=== PATIENT | female | born 1955 | race Caucasian/White ===

== ENCOUNTER 2024-12-18 13:31 | Outpatient (AMB) | payer OTHER, SELFPAY ==
--- OUTSIDE RECORDS SUMMARY | 2024-05-29 06:00 | XMS_ITS ---
Author Organization [facility] Address [address] [place], [place] [id number] Care Team Providers Care Performance Manager Name Role Phone FAWN ROBLES Primary Care Provide [phone] REASON FOR VISIT 39/4-5mo f/u Encounters Encounter Location Date Provider Diagnosis [place] [phone] 05/29/2024 FAWN ROBLES PLAN OF TREATMENT Next Appt Details Provider Name:FAWN DONALD, 01/28/2025 11:00:00 AM, [address] [place] [address], [phone],
--- OUTSIDE RECORDS SUMMARY | 2024-07-26 07:00 | XMS_ITS ---
Author Organization [facility] Address [address] [place], [place] [id number] Care Team Providers Care State Manager Name Role Phone FAWN ROBLES Primary Care Provide [phone] REASON FOR VISIT referral Encounters Encounter Location Date Provider Diagnosis [place] [phone] 07/26/2024 FAWN ROBLES PLAN OF TREATMENT Next Appt Details Provider Name:FAWN DONALD, 01/28/2025 11:00:00 AM, [address] [place] [address], [phone],
--- OUTSIDE RECORDS SUMMARY | 2024-08-03 06:00 | XMS_ITS ---
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) Referral Organization [facility] Referring Provider First Name FAWN Referring Provider Last Name MARIVEL CHEUNG Referring Provider Speciality Internal M edicine Referred Organization [facility] Referred Address Fax # on request fax ,[place] Referred Provider Specialty Endocrinolog y General Notes Doris WICK MA 08/2024 08:20:27 AM > faxed ref to [facility] , f: [phone], Doris WICK [place] 09/07/2024 03:31:29 PM > manually faxed U/S and labs to [facility] , f: [phone], Chelsey WICK P Admin 11/14/2024 10:31:57 AM > per incoming document pt has appt on 11/19 with Lorri Ferro>requesting 12 visits>cannot obtain a referral right now with [facility] as it still does not have our doctors listed, Chelsey WICK P Admin 12/14/2024 03:00:28 PM > referral approved and faxed to [facility] at [phone]>encounter closed Clinical Notes FAWN ROBLES 09/03/2024 04:54:25 PM >pls fax thyroid us and labs to [facility] Natalie G [place] 10/14/2024 12:40:19 PM > no notes office number [phone] Referral Priority Urgent Referral Appointment Date 11/19/2024 Reason [facility] (fax ed 08[facility]13/24[facility] tx emphysema Diagnosis 1 Pulmonary emphysema, unspecified emphysema type (J43.9) Referral Organization [facility] Referring Provider First Name FAWN Referring Provider Last Name MARIVEL CHEUNG Referring Provider Speciality Internal M edicine Referred Provider BOYD WILKINSON Referred Provider Specialty Internal Med icine General Notes Doris WICK MA 08/2024 08:22:15 AM > faxed ref to [facility] pulm, f: [phone], Chelsey WICK P Admin 11/29/2024 12:34:03 PM > , Marci Cedillo, , calling regarding the referral to Dr Zavala. I did advise on the issues with [facility] Manually faxed referral request to [facility] as doctor is no showing on their website , Chelsey WICK P Admin 11/29/2024 03:12:38 PM > Marci Cedillo, , start date today, 11/29/2024, Dr. Wilkinson, , , Reason: emphysema, Kendra WICK Referrals 12/12/2024 12:21:06 PM > back dagted referral approved and faxed to [facility] at [phone] Referral Priority Routine Referral Appointment Date 11/29/[address] [facility] for eval/tx of new right sided hearing loss Diagnosis 1 Hearing loss of righ t ear, unspecified hearing loss type (H91.91) Referral Organization [facility] Referring Provider First Name FAWN Referring Provider Last Name MARIVEL CHEUNG Referring Provider Speciality Internal M edicine Referred Organization [facility] Referred Address [place], [place], Referred Provider Specialty Otology, Lar yngology, Rhinology General Notes SHAMIKADoris Christianson SABRINA 08/08 05:07:35 PM > faxed to [place] ent , f: [phone] Referral Priority Urgent REASON FOR VISIT follow up, feels very congested had flu in May 2024 and right ear hearing sound muffled almost like water inside , sometimes feels off balance MEDICATIONS Medication SIG (Take, Route, Frequency, Duration) Notes Start Date End Date Status Vitamin D 1000 UNIT 1 tablet Orally Once a day for 30 day(s) Active Multivitamin Adults - as directed Orally Active Wellbutrin SR 150 MG 1 tablet in the mor lucy Orally Once a day for 30 days Active Hair Skin & Nails Gummies 1250-7.5-7.5 MCG-MG-UNT as directed Orally Active dexAMETHasone 1 MG 1 tablet Orally once between 11pm and midnight , night before fasting am labs for 1 days Active Melatonin 5 MG 1 tablet in the even ing Orally Once a day for 30 day(s) Active SOCIAL HISTORY Tobacco Use: Social History Observation Description Date Details (start date - stop date) Current Smoker NA - NA Sex Assigned At : Social History Observation Description Sex Assigned At Unknown Smoking Question Answer Notes Are you a: current smoker PROBLEMS Problem Type ICD Code Onset Dates Problem Status W/U Status Risk SNOMED Code Notes Problem Hearing loss of right ear, unspecified hearing loss type (H91.91) Active confirmed 960463976 VITAL SIGNS Height 60.5 in 08/03/2024 Weight 117 lbs 08/03/2024 Blood pressure systolic 126 mm Hg 08/04/19 25 Blood pressure diastolic 68 mm Hg 025 BMI 22.47 kg/m2 08/03/2024 Encounters Encounter Location Date Provider Diagnosis [facility] [address] [place], [place] [id number] 5 FAWN ROBLES Adrenal incidentaloma E27.8 ; Hyperparathyroidism E21.3 ; Nontoxic single thyroid nodule E04.1 ; Pulmonary emphysema, unspecified emphysema type J43.9 ; Pulmonary nodule R91.1 ; Vitamin D deficiency E55.9 ; Hearing loss of right ear, unspecified hearing loss type H91.91 and Tobacco user Z72.0 ASSESSMENTS Encounter Date Diagnosis Assessment Notes Treatment Notes Treatment Clinical Notes Section Notes 08/03/2024 Adrenal incidentalom a (ICD-10 - E27.8) have ref to endo for evla and fu 08/03/2024 Hyperparathyroidism (ICD-10 - E21.3) will fu w/ endo as above 08/03/2024 Nontoxic single thyr oid nodule (ICD-10 - E04.1) have ordered us adn fu w/ endo 08/03/2024 Pulmonary emphysema, unspecified emphysema type (ICD-10 - J43.9) have ref to pulm 08/03/2024 Pulmonary nodule (ICD-10 - R91.1) will need ldct fu in 202508/03/2024 Vitamin D deficiency (ICD-10 - E55.9) cont supplements and will montior 08/03/2024 Hearing loss of righ t ear, unspecified hearing loss type (ICD-10 - H91.91) ref to ent for eval 08/03/2024 Tobacco user (ICD-10 - Z72.0) understands need for cessation will start wellbutrin for help w/ smoking cessation. start 2 wks before planned quit date. med and SE PLAN OF TREATMENT Medication Medication Name Sig Start Date Stop Date Notes Wellbutrin SR 150 MG 1 tablet in the mor lucy Orally Once a day for 30 days Treatment Notes Assessment Notes Adrenal incidentaloma have ref to endo f or evla and fu Hyperparathyroidism will fu w/ endo as a anna Nontoxic single thyroid nodule have orde red us adn fu w/ endo Pulmonary emphysema, unspecified emphyse ma type have ref to pulm Pulmonary nodule will need ldct fu in 2025 Vitamin D deficiency cont supplements an d will montior Hearing loss of right ear, u nspecified hearing loss type ref to ent for eval Tobacco user understands need for cessation will start wellbutrin for help w/ smoking cessation. start 2 wks before planned quit date. med and SE Referrals Referral Date Details 11/19/2024 11/19/2024, [facility] or dr russo for hyperparathyroid and adrenal incidentilomas, large thryoid nodule, low cortisol, osteoporosis , Fax # on request fax 11/29/2024 11/29/2024, [facility] (faxed 08/13/24) marci parker for eval and tx emphysema , BOYD WILKINSON [facility] for eval/tx of new right sided hearing loss , [facility] [place] Next Appt Details Follow Up: lab req 5-6 wks f or smoking and 5 mo fu, Reason: Provider Name:FAWN GOLD SHABANA, 01/28/2025 11:00:00 AM, [address] [place] [address], [place], [address], Progress Notes * Examination Category Sub-Category Detail Notes Category Not es General Examination see abov e History and Physical Notes * HPI (History of Present Illness) Category Sub-Category Detail Notes Category Not es General Pt Is here today for a follow-up visit. The following is copied/reviewed/edited from previous: -fam h/o colon ca has been referred to GI for colonoscopy. She relays last colonoscopy was 05/26/2015 recommended repeat in 5 years. gi yeisonyuki barreto. colonoscopy done 02/04/24 rpt 5 yrs. -pmhx of h/o thyroid nodule, tobacco use, hyperparathyroidism. Thyroid ultrasound was done to evaluate the history of thyroid nodule and was found to have a large thyroid nodule replacing most of the left lobe of the thyroid. She tells me she has had biopsy of the nodule in the past and was going to be referred to discuss possibly having it removed. She tells me that she thinks they also recommended surgery for her hyperparathyroidism in the past. Unfortunately these notes are not available. She was referred to endocrine surgery at [facility], saw dr love 07/2023 he recommended fu w/ endo and schedule appt when ready for appt. -utd eye exam and dentist -She has a tobacco history and tobacco use and was referred for LDCT , 6 mo fu for pulm nodules (11/2022) planned. given info to schedule today -They also noted the adrenal adenoma/incidentaloma that we had noted and discussed earlier. The only other finding they mentioned was some emphysema that they saw on the pictures. Ct scan was done. and reviewed her -Noted to have a cardiac murmur at her initial visit, which she does not recall being told of in the past and will need echocardiogram for evaluation. Unfortunately this had initially not been approved by her insurance and will be resubmitted. In addition to the murmur she tells me she has had occasional episodes of palpitations. Does not think that they were associated with exertion or emotional stress tend to be sporadic. -had echo [facility] cards 2022 mild MR utd dexa and mammo -Referred to dermatology for skin check and had reviewed importance of safe sun seen [place] derm -------- ROS GENERAL: No malaise, significant weight loss or fever HEENT: No changes in vision or hearing. No sore throat. No neck pain. No lumps or masses noted in neck. diminished hearing on right, RESPIRATORY: No cough, wheezing or shortness of breath CARDIOVASCULAR: No chest pain, leg swelling or palpitations GI: No abdominal discomfort, blood in stools or black stools : No incontinence. No dysuria. No gross hematuria. No nocturia. MUSCULOSKELETAL: No joint pain or swelling, back pain, or muscle pain. SKIN: No lesions, rash or itching PSYCH: No sleep disturbance, mood disorder or recent psychosocial stressors. ENDOCRINE: No cold or heat intolerance, polyuria, polydipsia or goiter. HEME/LYMPH: No easy bruising or bleeding. No lymph node enlargement or tenderness. NEURO: No persistent headache, syncope, seizures, weakness or numbness -------- PE APPEARANCE: Alert and in no acute distress HEENT: NCAT, EOMI, nl conjunctiva. external ears normal. Neck is supple. No palpable lymphadenopathy. No thyromegaly.no erythema or exudates HEART: RRR with normal S1 and S2 LUNG: clear to auscultation ABDOMEN: Bowel sounds normoactive, soft, non-tender, without organomegaly or palpable masses BACK: No pain to palpation with good flexion and extension EXTREMITIES: Extremities warm and well perfused without clubbing, cyanosis, or edema NEURO: Awake, alert and oriented x 3 SKIN: Skin color, texture, turgor normal. No rashes or lesions. - Consultation Request Notes Referral Date Referring Provider Referred Provider Not es 08/03/2024 FAWN ROBLES , [facility] or dr russo for hyperparathyroid and adrenal incidentilomas, large thryoid nodule, low cortisol, osteoporosis 08/03/2024 FAWN ROBLES [facility] (faxed ) marci parker for eval and tx emphysema 08/03/2024 FAWN ROBLES , [facility] for eval/tx of new right sided hearing loss
--- OUTSIDE RECORDS SUMMARY | 2024-08-03 08:58 | XMS_ITS ---
Author Organization [facility] Address [address] [place], [place] [id number] Care Team Providers Care Novelty Maker Name Role Phone FAWN ROBLES Primary Care Provide [phone] REASON FOR VISIT Supervising Provider Encounters Encounter Location Date Provider Diagnosis [address] [address] 08/03/2024 FAWN ROBLES PLAN OF TREATMENT Next Appt Details Provider Name:FAWN DONALD, 01/28/2025 11:00:00 AM, [address] [place], [address],
--- OUTSIDE RECORDS SUMMARY | 2024-08-07 05:12 | XMS_ITS ---
Author Organization [facility] Address [address] [place], [place] [id number] Care Team Providers Care Formula Mixer Name Role Phone FAWN ROBLES Primary Care Provide r [phone] REASON FOR VISIT Welbutrin MEDICATIONS Medication SIG (Take, Route, Fr equency, Duration) Notes Start Date End Date Status Wellbutrin SR 150 MG 1 tablet in the mor lucy Orally Once a day for 90 days Active Encounters Encounter Location Date Provider Diagnosis [facility] [address] [place] [address] 08/07/2024 FAWN ROBLES Tobacco user Z72.0 ASSESSMENTS Encounter Date Diagnosis Assessment Notes Treatment Notes Treatment Clinical Notes Section Notes 08/07/2024 Tobacco user (ICD-10 - Z72.0) PLAN OF TREATMENT Medication Medication Name Sig Start Date Stop Date Notes Wellbutrin SR 150 MG 1 tablet in the mor lucy Orally Once a day for 90 days Next Appt Details Provider Name:FAWN DONALD, 01/28/2025 11:00:00 AM, [address] [place], [address],
--- OUTSIDE RECORDS SUMMARY | 2024-09-21 05:30 | XMS_ITS ---
Author Organization [facility] Address [address] [place], [place] [phone] Care Team Providers Care Special Technical Operations Officer Name Role Phone ESTERCHRISTFAWN FARRIS Primary Care Provide [phone] ALLERGIES No Known Allergies REASON FOR VISIT 39-6WK FOLLOW UP MEDICATIONS Medication SIG (Take, Route, Frequency, Duration) Notes Start Date End Date Status Multivitamin Adults - as directed Orally Active dexAMETHasone 1 MG 1 tablet Orally once between 11pm and midnight , night before fasting am labs for 1 days Active Vitamin D 1000 UNIT 1 tablet Orally Once a day for 30 day(s) Active Hair Skin & Nails Gummies 1250-7.5-7.5 MCG-MG-UNT as directed Orally Active Melatonin 5 MG 1 tablet in the evening Orally Once a day for 30 day(s) Active Wellbutrin SR 150 MG 1 tablet in the morning Orally bid for 90 days dose change Active PROBLEMS Problem Type ICD Code Onset Dates Problem Status W/U Status Risk SNOMED Code Notes Problem Emphysema, unspecified (J43.9) Active confirmed [id number] Problem Hearing loss, unspecified hearing loss type, unspecified laterality (H91.90) Active confirmed [id number] VITAL SIGNS Height 60.5 in 09/21/2024 Weight 117 lbs 09/21/2024 Blood pressure systolic 126 mm Hg 09/22/19 25 Blood pressure diastolic 68 mm Hg 025 BMI 22.47 kg/m2 09/21/2024 Encounters Encounter Location Date Provider Diagnosis [facility] [address] [place] [address] FAWN ROBLES Nicotine dependence, unspecified, uncomplicated F17.200 ; Nontoxic single thyroid nodule E04.1 ; Primary hyperparathyroidism E21.0 ; Adrenal incidentaloma E27.8 ; Emphysema, unspecified J43.9 ; Hearing loss, unspecified hearing loss type, unspecified laterality H91.90 and Pericardial effusion I31.39 ASSESSMENTS Encounter Date Diagnosis Assessment Notes Treatment Notes Treatment Clinical Notes Section Notes 09/21/2024 Nicotine dependence, unspecified, uncomplicated (ICD-10 - F17.200) understands need for cesstion interested in wellbutrin to help with cesstion started at prev visit. tolerating well and finds helpful cont annual ldct 09/21/2024 Nontoxic single thyr oid nodule (ICD-10 - E04.1) us was done : 3.6 cm TI-RADS category 4 nodule replacing most of the left lobe of the thyroid, stable to slightly decreased in size. Nodule again meets criteria for FNA, if not done already. has been ref to endocrine for eval/tx 09/21/2024 Primary hyperparathyroidism (ICD-10 - E21.0) ref to endo as above 09/21/2024 Adrenal incidentalom a (ICD-10 - E27.8) ref to endo as above 09/21/2024 Emphysema, unspecifi ed (ICD-10 - J43.9) waiting for appt w/ pulm 09/21/2024 Hearing loss, unspecified hearing loss type, unspecified laterality (ICD-10 - H91.90) is ref to ent and is waiting for appt 09/21/2024 Pericardial effusion (ICD-10 - I31.39) on echo 12/2022 rpt ordered for comparison PLAN OF TREATMENT Medication Medication Name Sig Start Date Stop Date Notes Wellbutrin SR 150 MG 1 tablet in the mor lucy Orally bid for 90 days dose change Treatment Notes Assessment Notes Nicotine dependence, unspecified, uncomp licated understands need for cesstion interested in wellbutrin to help with cesstion started at prev visit. tolerating well and finds helpful cont annual ldct Nontoxic single thyroid nodule us was done : 3.6 cm TI-RADS category 4 nodule replacing most of the left lobe of the thyroid, stable to slightly decreased in size. Nodule again meets criteria for FNA, if not done already. has been ref to endocrine for eval/tx Primary hyperparathyroidism ref to endo as above Adrenal incidentaloma ref to endo as abo ve Emphysema, unspecified waiting for appt w/ pulm Hearing loss, unspecified he aring loss type, unspecified laterality is ref to ent and is waiting for appt Pericardial effusion on echo 12/2022 rpt ordered for comparison Pending Test Test Name Order Date Echocardiogram 09/21/2024 Next Appt Details Follow Up: prn, Reason: Provider Name:FAWN GOLD JUANTEODORADRAGAN, 01/28/2025 11:00:00 AM, [address] [facility], [place], [address], Progress Notes * Examination Category Sub-Category Detail Notes Category Not es General Examination see abov e History and Physical Notes * HPI (History of Present Illness) Category Sub-Category Detail Notes Category Not es General Pt Is here today for a follow-up visit. had been seen 6 wks ago and started on wellbutrin for smoking cessation The following is copied/reviewed/edited from previous: -fam h/o colon ca has been referred to GI for colonoscopy. She relays last colonoscopy was 05/26/2015 recommended repeat in [address] barreto. colonoscopy done 02/04/24 rpt 5 yrs. -pmhx of h/o thyroid nodule, tobacco use, hyperparathyroidism. b/l adrenal incidentiloma, Thyroid ultrasound was done to evaluate the [...] She was referred to endocrine surgery at [facility], saw dr love 07/2023 he recommended fu w/ endo and schedule appt when ready for appt/surgery -utd eye exam and dentist -She has a tobacco history and tobacco use and was referred for LDCT , which is utd -They also noted the adrenal adenoma/incidentaloma that we had noted and discussed earlier. The only other finding they mentioned was some emphysema that they saw on the pictures. Ct scan was done. and reviewed her -Noted to have a cardiac murmur at her initial visit, which she does not recall being told of in the past and will need echocardiogram for evaluation. -had echo [facility] cards 2022 mild MR mild TR. small pericardial effusion utd dexa and mammo -Referred to dermatology for skin check and had reviewed importance of safe sun seen [place] derm recent labs reviewed w/ patient: The recent ultrasound of your thyroid shows a very large nodule in one of your thyroid lobes taking up most of the lobe. Based on the size they do recommend biopsy. You have been referred to endocrinology for this and hyperparathyroidism and you should be hearing from them to schedule an appointment. If not then we can discuss sending you to interventional radiology for a biopsy. The labs showed: Normal blood counts with no anemia. Normal liver function and kidney function. Total cholesterol was good your LDL/bad cholesterol was slightly elevated at 124. Your calcium and parathyroid hormone levels are elevated (hyperparathyroidism) this is one of the reasons you referred to endocrinology.. Thyroid function is good . Vitamin D levels were good. Fasting glucose was minimally elevated (102) Your cortisol levels were low.We will have you follow-up with the endocrinology doctor for this as well. -------- ROS GENERAL: No malaise, significant weight loss or fever HEENT: No changes in vision or hearing. No sore throat. No neck pain. No lumps or masses noted in neck. diminished hearing on right, see hpi RESPIRATORY: No cough, wheezing or shortness of [...]
--- OUTSIDE RECORDS SUMMARY | 2024-11-20 03:32 | XMS_ITS ---
Author Organization [facility] Address [address] [place], [place] [id number] Care Team Providers Care Floorwalker Name Role Phone FAWN ROBLES Primary Care Provide r [phone] REASON FOR VISIT speak to endo provider Encounters Encounter Location Date Provider Diagnosis [address] [address] 11/20/2024 FAWN ROBLES PLAN OF TREATMENT Next Appt Details Provider Name:FAWN DONALD, 01/28/2025 11:00:00 AM, [address] [place], [address],
--- OUTSIDE RECORDS SUMMARY | 2024-11-29 07:06 | XMS_ITS ---
Author Organization [facility] Address [address] [place], [place] [id number] Care Team Providers Care Lumber Planer Name Role Phone FAWN ROBLES Primary Care Provide [phone] REASON FOR VISIT referral Encounters Encounter Location Date Provider Diagnosis [address] [address] 11/29/2024 FAWN ROBLES PLAN OF TREATMENT Next Appt Details Provider Name:FAWN DONALD, 01/28/2025 11:00:00 AM, [address] [place] [address], [phone],
--- OUTSIDE RECORDS SUMMARY | 2024-11-29 07:13 | XMS_ITS ---
Author Organization [facility] Address [address] [place], [place] [id number] Care Team Providers Care Public Affairs Director Name Role Phone FAWN ROBLES Primary Care Provide [phone] REASON FOR VISIT referral Encounters Encounter Location Date Provider Diagnosis [address] [address] 11/29/2024 FAWN ROBLES PLAN OF TREATMENT Next Appt Details Provider Name:FAWN DONALD, 01/28/2025 11:00:00 AM, [address] [place] [address], [phone],
--- OUTSIDE RECORDS SUMMARY | 2024-12-10 05:55 | XMS_ITS ---
Author Organization [facility] Address [address] [place], [place] [id number] Care Team Providers Care Bank Officer Name Role Phone FAWN ROBLES Primary Care Provide [phone] REASON FOR VISIT Referral Status Encounters Encounter Location Date Provider Diagnosis [address] [address] 12/10/2024 FAWN ROBLES PLAN OF TREATMENT Next Appt Details Provider Name:FAWN DONALD, 01/28/2025 11:00:00 AM, [address] [place] [address], [phone],
[2024-12-18 13:42] VITALS: BP 130/82; PULSE 92; O2SAT 92; BMI 22.5
--- NOTE | 2024-12-18 13:42 | MHC.OFFVIS ---
Vital Signs 12/18/24 13:42 Height 5 ft 1 in Weight 119 lb 0.794 oz BMI 22.5 BP 130/82 Blood Pressure Location Lt brachial Position Sitting Pulse 92 Pulse Source Pulse Oximeter Pulse Oximetry (%) 92 Oxygen Delivery Method Room Air Intake Visit Reasons: emphysema Intake Note: pt is here as a new patient, she does have some short of breath with stairs (many stairs at work). 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 She has a longstanding history of smoking. She has only occasional cough mainly related to smoking. She gets annual LDCT . The CT scan has shown changes of pulmonary emphysema. Patient also feels short of breath if she has to climb more than 1 flight of stairs, or up hill. She has no problem when walking around at on level ground or in the house . She has history of smoking since her teenage, but has quit smoking off and on. Currently for the last 4-5 months she has cut it weight down, to about 3 cigarettes a day. She has always been in good health. Now she is using Wellbutrin 150 b.i.d. which is helping her to quit smoking. She uses calcium with D and multivitamin 1 tablet a day She does not use any other medications. [facility] Medical History (Updated 12/18/24 @ 17:20 by Sol Beck MD) Smoking COPD (chronic obstructive pulmonary disease) Social History Patient Tobacco Use Status: Current someday Tobacco user Cigarette Packs Per Day: 0.25 Cigarettes Per Day: 2 Review of Systems Const All systems reviewed & are unremarkable except as noted in HPI and below Eyes Reports no additional complaints ENT Reports no additional complaints Card Denies chest pain, Denies irregular heart rhythm and Denies leg edema Resp Reports as per HPI GI Reports no additional complaints Reports no additional complaints Musc Reports no additional complaints Skin/Breast Reports system reviewed and no additional complaints, except as documented Neuro Reports no additional complaints Psych Reports no additional complaints Endo Reports no additional complaints Jesse/Lymph Reports no additional complaints Aller/Immun Reports no additional complaints Physical Exam Vital Signs: Last Vital Signs Pulse 92 12/18/24 13:42 BP 130/82 12/18/24 13:42 Pulse Ox 92 12/18/24 13:42 Oxygen Delivery Method Room Air 12/18/24 13:42 BMI result Body Mass Index 22.5 Const General: healthy appearing, comfortable, no acute distress, alert and awake Orientation/consciousness: patient oriented x3 HEENT Head: Yes normal to inspection General nose exam: No nasal polyps present and No nasal discharge present Face and sinus: Yes sinuses nontender Mouth: oropharynx normal Throat: Yes posterior oropharynx normal Eyes General: appearance normal, both eyes and all related structures Neck Neck: Yes normal visual inspection, Yes no lymphadenopathy, Yes trachea midline and Yes no JVD Thyroid: Thyroid normal Chest Chest palpation & inspection: normal inspection of the chest, normal palpation of entire chest wall and no tenderness Resp Effort & Inspection: normal respiratory effort Auscultation: clear to auscultation bilaterally, no crackles, no rhonchi and no wheezes Cardio Palpation: normal PMI Rate: regular rate Rhythm: regular rhythm Heart sounds: no gallops and no murmurs Peripheral pulses: Peripheral pulses 2+ throughout GI Palpation (GI): Soft to palpation, nontender, No hepatosplenomegaly present and no masses Auscultation: normal bowel sounds Back/Spine/Pelvis Thoracic/Lumbar Spine: thoracic and lumbar spine normal to inspection Skin General skin exam: no rashes or lesions noted Neuro General: patient oriented x3 and no focal motor deficits Cranial nerves: Yes CN's II-XII intact bilaterally Extrem General: Yes normal to inspection, Yes no clubbing, cyanosis or edema and Yes no calf tenderness Psych Appearance: grossly normal and well kempt Speech and movement: Normal speech and movement present Office Procedures Spirometry Testing Spirometry Comments: [place] [address]- Spirometry Results Reviewed Results Reviewed: SPIROMETRY Assessment & Plan Assessment & Plan (1) COPD (chronic obstructive pulmonary disease): Comment: ON THE CT SCAN OF THE CHEST THERE IS EVIDENCE OF PULMONARY EMPHYSEMA. SPIROMETRY TODAY SHOWS MILD OBSTRUCTIVE AIRWAY DISORDER WITH SOME IMPROVEMENT IN FEF 06/26/2074 AFTER BD THERAPY Code(s): J44.9 - Chronic obstructive pulmonary disease, unspecified Category: Medical Plan: ALBUTEROL HFA 2 PUFFS Q 4-6 HOURS PRN IF SHE EXPERIENCES SHORTNESS OF BREATH, AT REST. (2) Smoking: Comment: HISTORY OF SMOKING OFF AND ON , NOW 1 PACK A DAY FOR ALMOST 20 YEARS. RECENTLY CUT DOWN TO 3 CIGARETTES A DAY. Code(s): F17.200 - Nicotine dependence, unspecified, uncomplicated Category: Social Hx Plan: I EXPLAINED THE RESULTS OF PFT TO HER. TOLD HER THAT SHE SHOULD QUIT SMOKING COMPLETELY SHE IS ALREADY ON WELLBUTRIN TREATMENT AND NOW WITH THE INCREASE KNOWLEDGE OF PULMONARY DISEASE SHE IS GOING TO BE MORE SERIOUS TO STOP SMOKING. Orders: Orders AMB Spirometry Testing Today Siena Lieberman, RT J43.9 - Emphysema, unspecified Medications: New albuterol sulfate 90 mcg/actuation (Ventolin HFA) 2 puffs inhalation Q4-6H PRN 8.5 grams 2RF shortness of breath or wheezing 30 days Sol Beck MD F17.200 - Nicotine dependence, unspecified, uncomplicated, J44.9 - Chronic obstructive pulmonary disease, unspecified Coding Level of Care Code New Pt Level 4 (11943) Diagnoses COPD (chronic obstructive pulmonary disease) J44.9 Smoking F17.200 CPT Codes Spirometry - CPT: 74362- Spirometry ([id number])
--- OUTSIDE RECORDS SUMMARY | 2024-12-18 15:08 | XMS_ITS | Clinical Summary ---
Author Organization [facility] Address [address] [place] [address] Phone Care Team Providers Care Thread Drawer Name Role Phone MichellecatePearl Baires DO Primary Care Pro vider Social History Tobacco Use Types Packs/Day Years Used Date Smoking Tobacco: Never Assessed Comments Unknown Sex and Gender Information Value Date Recorded Sex Assigned at Female 02/24/2024 3:18 PM EST Legal Sex Female 7:24 AM EST Gender Identity Female 02/24/2024 3:18 PM EST Sexual Orientation Not on file Obstetrics History Last Filed Vital Signs Vital Sign Reading Time Taken Comments Blood Pressure - - Pulse - - Temperature - - Respiratory Rate - - Oxygen Saturation - - Inhaled Oxygen Concentration - - Weight 52.6 kg (116 lb) 02/27/2024 1:08 PM EST Height 154.9 cm (5' 1 ) 02/27/2024 1:08 PM EST Body Mass Index 21.92 02/27/2024 1:08 PM EST Plan of Treatment Health Maintenance Due Date Last Done Comments Colorectal Cancer Screening: Colonoscopy 1955 DTaP,Tdap,and Td Vaccines (1 - Tdap) 07/29/1974 Pneumococcal Vaccine: 50+ Years (1 of 1 - PCV) 07/29/2005 Zoster Vaccines (1 of 2) 07/29/2005 Falls Risk Assessment 01/10/2022 Hepatitis C Screening 01/10/2022 Social Influencers of Health Screening 01/10/2022 Depression Screening 02/08/2024 COVID-19 Vaccine (4 - 2024-2 6 season) 2024 11/25/2020, 05/16/2020, 04/25/2020 Influenza Vaccine (#1) 2024 Breast Cancer Screening 02/26/2026 02/26/19, 09/14/2022, 09/11/2021 RSV Immunization Adult Patients (1 - 1-dose 75+ series) 07/29/2030 Osteoporosis Screening (Bone Density Screening) 02/26/2034 02/27/2024, 09/11/2021 HIB Vaccines Aged Out No longer eligi ble based on patient's age to complete this topic HPV Vaccines Aged Out No longer eligi ble based on patient's age to complete this topic Hepatitis A Vaccines Aged Out No long er eligible based on patient's age to complete this topic Hepatitis B Vaccines Aged Out No long er eligible based on patient's age to complete this topic IPV Vaccines Aged Out No longer eligi ble based on patient's age to complete this topic MMR Vaccines Aged Out No longer eligi ble based on patient's age to complete this topic Meningococcal ACWY Vaccine Aged Out N o longer eligible based on patient's age to complete this topic Meningococcal B Vaccine Aged Out No l onger eligible based on patient's age to complete this topic RSV Immunization Patients Under 20 months Aged Out No longer eligible b ased on patient's age to complete this topic Varicella Vaccines Aged Out No longer eligible based on patient's age to complete this topic Procedures Procedure Name Priority Date/Time Associated Diagnosis Comments BD BONE DENSITY DXA AXIAL SKELETON Routine 02/27/2024 1:42 PM EST Asymptomatic menopausal state MG MAMMO DIGITAL SCREENING W RELL BILAT Routine 02/27/2024 1:17 PM EST Encounter for screening mammogram for malignant neoplasm of breast from Last 3 Months or Most Recently Relevant to Health Maintenance Results * BD Bone Density DXA Axial Skeleton (02/27/2024 1:42 PM EST) Anatomical Region Laterality Modality Wrist, Hip, L-spine Bone Densito metry 02/28/2024 7:43 AM EST Impressions 02/28/2024 7:45 AM EST 1. Osteopenia. There has been an increase of 2.8% in bone mineral density in the lumbar spine since the prior examination of 09/11/2021. There has been an increase of 4.4% in bone mineral density in the right femur and a decrease of 2.3% in bone mineral density in the left femur. 2. FRAX analysis yields a 10-year probability of major osteoporotic fracture of 12.5% and a 10-year probability of hip fracture of 3.6%. Code 84837 -------- FINAL REPORT -------- Dictated By: Shukri Hurd Dictated Date: 02/28/2024 07:43 ET Assigned Physician: Shukri Hrud Reviewed and Electronically Signed By: Shukri Hurd Signed Date: 02/28/2024 07:45 ET Workstation ID: [id number] Transcribed By: Self Edit Transcribed Date: 02/28/2024 07:43 ET Narrative 02/28/2024 7:45 AM EST HISTORY: The patient is a 68-year-old postmenopausal female with clinical concern for metabolic bone disease. FINDINGS: Dual energy x-ray absorptiometry of the lumbar spine and femurs is performed. The mean bone mineral density at L1-L4 is 0.943 gm/cm2 which is 80% of that of young normals and 100% of that of age matched controls. This yields a T-score of -2.0 and a Z-score of 0.0 which is diagnostic of osteopenia. The mean bone mineral density of the femurs bilaterally is 0.830 gm/cm2 which is 82% of that of young normals and 103% of that of age matched controls. This yields a T-score of -1.4 and a Z-score of 0.2 which is diagnostic of osteopenia. The T-score of the right femoral neck is -2.0 and that of the left femoral neck is -1.9 which is diagnostic of osteopenia. Procedure Note Shukri Hurd MD - 02/28/2024 HISTORY: The patient is a 68-year-old postmenopausal female with clinicalconcern for metabolic bone disease. FINDINGS: Dual energy x-ray absorptiometry of the lumbar spine and femursis performed. The mean bone mineral density at L1-L4 is 0.943 gm/cm2 whichis 80% of that of young normals and 100% of that of age matched controls.This yields a T-score of -2.0 and a Z-score of 0.0 which is diagnostic ofosteopenia. The mean bone mineral density of the femurs bilaterally is 0.830 gm/nl4gxomc is 82% of that of young normals and 103% of that of age matchedcontrols. This yields a T-score of -1.4 and a Z-score of 0.2 which isdiagnostic of osteopenia. The T- score of the right femoral neck is -2.0and that of the left femoral neck is -1.9 which is diagnostic ofosteopenia. IMPRESSION: 1. Osteopenia. There has been an increase of 2.8% in bone mineral densityin the lumbar spine since the prior examination of 09/11/2021. There hasbeen an increase of 4.4% in bone mineral density in the right femur and adecrease of 2.3% in bone mineral density in the left femur. 2. FRAX analysis yields a 10-year probability of major osteoporoticfracture of 12.5% and a 10-year probability of hip fracture of 3.6%. Code 41754 -------- FINAL REPORT -------- Dictated By: Shukri Hurd Dictated Date: 02/28/2024 07:43 ET Assigned Physician: Shukri Hurd Reviewed and Electronically Signed By: Shukri Hurd Signed Date: 02/28/2024 07:45 ET Workstation ID: [id number] Transcribed By: Self Edit Transcribed Date: 02/28/2024 07:43 ET us Pearl Ponce DO [facility] [place] DXA PROCEDURE S Final Result * MG Mammo Digital Screening w Rell bilat (02/27/2024 1:17 PM EST) Anatomical Region Laterality Modality Breast Bilateral Mammography 02/27/2024 3:39 PM EST Impressions 02/27/2024 3:46 PM EST No mammographic evidence of malignancy. No suspicious interval change. A negative mammogram in the presence of a clinically suspicious palpable abnormality does not preclude the possibility of malignancy or alter the indications for biopsy. ASSESSMENT: BI-RADS 1: NEGATIVE RECOMMENDATION(S): 1: Routine screening mammogram BILATERAL in 1 year. -------- FINAL REPORT -------- Dictated By: Fuentes Goetz Dictated Date: 02/27/2024 15:39 ET Assigned Physician: Fuentes Goetz Reviewed and Electronically Signed By: Fuentes Goetz Signed Date: 02/27/2024 15:46 ET Workstation ID: [id number] Transcribed By: Self Edit Transcribed Date: 02/27/2024 15:39 ET Narrative 02/27/2024 3:46 PM EST EXAM: SCREENING MAMMOGRAPHY, BILATERAL HISTORY: SCREENING. No additional history. COMPARISON: 09/14/2022, 09/11/2021 TECHNIQUE: Synthesized CC and MLO projections of each breast. Tomosynthesis of each breast in the CC and MLO projections. ADDITIONAL IMAGING: None Computer-aided detection was employed with the [employer] AI 3-D. TISSUE DENSITY: The breasts are heterogeneously dense, which may obscure small masses. (BI-RADS category C) FINDINGS: RIGHT BREAST: No suspicious mass. No suspicious calcification. No distortion. No change in the region of a biopsy site marker. LEFT BREAST: No suspicious mass. No suspicious calcification. No distortion. No additional suspicious left breast findings Procedure Note Fuentes Goetz MD - 02/27/2024 EXAM: SCREENING MAMMOGRAPHY, BILATERAL HISTORY: SCREENING. No additional history. COMPARISON: 09/14/2022, 09/11/2021 TECHNIQUE: Synthesized CC and MLO projections of each breast.Tomosynthesis of each breast in the CC and MLO projections. ADDITIONAL IMAGING: None Computer-aided detection was employed with the [employer] AI 3-D. TISSUE DENSITY: The breasts are heterogeneously dense, which may obscuresmall masses. (BI-RADS category C) FINDINGS: RIGHT BREAST: No suspicious mass. No suspicious calcification. No distortion. Nochange in the region of a biopsy site marker. LEFT BREAST: No suspicious mass. No suspicious calcification. No distortion. Noadditional suspicious left breast findings IMPRESSION: No mammographic evidence of malignancy. No suspicious interval change. A negative mammogram in the presence of a clinically suspicious palpableabnormality does not preclude the possibility of malignancy or alter theindications for biopsy. ASSESSMENT: BI-RADS 1: NEGATIVE RECOMMENDATION(S): 1: Routine screening mammogram BILATERAL in 1 year. -------- FINAL REPORT -------- Dictated By: Fuentes Goetz Dictated Date: 02/27/2024 15:39 ET Assigned Physician: Fuentes Goetz Reviewed and Electronically Signed By: Fuentes Goetz Signed Date: 02/27/2024 15:46 ET Workstation ID: [id number] Transcribed By: Self Edit Transcribed Date: 02/27/2024 15:39 ET Pearl Ponce DO IM BI PROCEDURES Final Result from Last 3 Months or Most Recently Relevant to Health Maintenance Insurance MEDICARE [facility] Care Teams Thread Drawer Relationship Specialty Start Date End Date Pearl Ponce DO [facility] [address] [place] [phone] PCP - General Internal Medicine 02/24/24
--- OUTSIDE RECORDS SUMMARY | 2024-12-18 15:09 | XMS_ITS | Patient Health Record ---
Author Organization [facility] Address [address], [place] [id number] Care Team Providers Care Equipment Services Associate Name Role Phone FAWN ROBLES Primary Care Provide [phone] ALLERGIES No Known Allergies REASON FOR REFERRAL Reason full body skin exam and eval of skin lesions on legs Z12.83 Referral Organization [facility] Referring Provider First Name FAWN Referring Provider Last Name MARIVEL CHEUNG Referring Provider Speciality Internal M edicine Referred Provider NICCI CUNNINGHAM Referred Provider Specialty Dermatology General Notes Pt called for any [place] referral due to insurance not accepted at [facility].SHAMIKA Rachel G Scheduling 05/24/2023 02:08:17 PM > fwd to [facility] EMA, Ashley K MA 01/27/2024 09:20:07 AM > faxed ref to SHAMIKA JETER Lori P Admin 03/01/2024 09:49:24 AM > sent pt a portal message asking if she has seen anyone yet, Doris WICK MA 03/25/2024 10:58:31 PM > pt has appt scheduled in July 2024, Sebastián WICK CMA 07/27/2024 02:05:07 PM > Priscila Houser NPI # [id number] Dx code Z12.83 F# [phone], Isaac WICK Referrals 07/31/2024 02:55:11 PM > unable to process referral under Priscila Houser NPI # [id number] , she is not listed under servicing provider, will need a supervising provider, faxed to [facility] at [phone], Isaac WICK Referrals 08/06/2024 01:52:20 PM > insurance referral requested from [facility], the patient saw Dr. Cunningham, referral approved and faxed to [facility] at [phone] Clinical Notes FAWN ROBLES 01/04/2024 11:25:40 AM >pt is inquiring if referral processed. 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) Referral Organization [facility] Referring Provider First Name FAWN Referring Provider Last Name MARIVEL CHEUNG Referring Provider Speciality Internal M edicine Referred Organization [facility] Referred Address Fax # on request fax ,[place] Referred Provider Specialty Endocrinolog y General Notes Doris WICK MA 08/2024 08:20:27 AM > faxed ref to [facility] , f: [phone], Doris WICK MA 09/07/2024 03:31:29 PM > manually faxed U/S and labs to [facility] , f: [phone], Chelsey WICK Admin 11/14/2024 10:31:57 AM > per incoming document pt has appt on 11/19 with Lorri Ferro>requesting 12 visits>cannot obtain a referral right now with [facility] as it still does not have our doctors listed, Chelsey WICK Admin 12/14/2024 03:00:28 PM > referral approved and faxed to [facility] at [phone]>encounter closed Clinical Notes FAWN ROBLES 09/03/2024 04:54:25 PM >pls fax thyroid us and labs to endoSHAMIKA Natalie G MA 10/14/2024 12:40:19 PM > no notes office number [phone] Referral Priority Urgent Referral Appointment Date 11/19/2024 Reason [facility] (fax ed 08/13/24) [facility] for eval and tx emphysema Diagnosis 1 Pulmonary emphysema, unspecified emphysema type (J43.9) Referral Organization [facility] Referring Provider First Name FAWN Referring Provider Last Name MARIVEL JOSEABDI Referring Provider Speciality Internal edicine Referred Provider BOYD WILKINSON Referred Provider Specialty Internal Med icine General Notes Doris WICK MA 08/2024 08:22:15 AM > faxed ref to [facility], f: [phone], Isamar WICKi P Admin 11/29/2024 12:34:03 PM > , Marci Cedillo, , calling regarding the referral to Dr Zavala. I did advise on the issues with [facility]., Manually faxed referral request to [facility] as doctor is no showing on their website , Isamar WICKi P Admin 11/29/2024 03:12:38 PM > Marci Cedillo, , start date today, 11/29/2024, Dr. Wilkinson, , , Reason: emphysema, SHAMIKA,Isaac Christianson Referrals 12/12/2024 12:21:06 PM > back dagted referral approved and faxed to [facility] at [phone] Referral Priority Routine Referral Appointment Date 11/29/[address] [facility] for eval/tx of new right sided hearing loss Diagnosis 1 Hearing loss of righ t ear, unspecified hearing loss type (H91.91) Referral Organization [facility] Referring Provider First Name FAWN Referring Provider Last Name ESTERSYLVESTERTORSTEN GARCIAABDI Referring Provider Speciality Internal edicine Referred Organization [facility] Referred Address [place] Referred Provider Specialty Otology, Lar yngology, Rhinology General Notes Doris WICK MA 08/08 05:07:35 PM > faxed to [facility] , f: [phone] Referral Priority Urgent MEDICATIONS Medication SIG (Take, Route, Frequency, Duration) [...] Gummies 1250-7.5-7.5 MCG-MG-UNT as directed Orally Active Wellbutrin SR 150 MG 1 tablet in the morning Orally bid for 90 days dose change Active Melatonin 5 MG 1 tablet in the evening Orally Once a day for 30 day(s) Active IMMUNIZATIONS Vaccine Route Administration Date Status Comme nts Tdap (Adacel) IM Intramuscular 02/25/2014 Administered Pneumococcal, PPV 23 IM Intramuscular 03/28/2015 Administe red SOCIAL HISTORY Tobacco Use: Social History Observation Description Date Details (start date - stop date) Current Smoker NA - NA Sex Assigned At : Social History Observation Description Sex Assigned At Unknown Smoking Question Answer Notes Are you a: current smoker PROBLEMS Problem Type ICD Code Onset Dates Problem Status W/U Status Risk SNOMED Code Notes Problem Thyroid nodule (241.0) Active confirmed Thyroid nodule (040969126) Problem Elevated blood pressure reading without diagnosis of hypertension (R03.0) Active confirmed 265472277 Problem Vitamin D deficiency (E55.9) Active confirmed 26576123 Problem Underweight (R63.6) Active confirmed 133251522 Problem Pulmonary nodule (R91.1) Active confirmed 126675349 Problem Osteopenia (M85.80) Active confirmed 059795657 Problem Primary hyperparathyroid ism (E21.0) Active confirmed Primary hyperparathyroidis m (96058099) Problem 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) Active confirmed Non-toxic singl e thyroid nodule (448239248) Problem Nicotine dependence, unspecified, uncomplicated (F17.200) Active confirmed Tobacco user (819428505) Problem Centrilobular emphysema (J43.2) Active confirmed 53930236 Problem Emphysema, unspecified (J43.9) Active confirmed 25061701 Problem Encounter for screening for malignant neoplasm of colon (Z12.11) Active confirmed Screening for malignant neoplasm of colon (102912567) Problem Family history of malignant neoplasm of digestive organs (Z80.0) Active confirmed Family history of malignant neoplasm of gastrointestinal tract (362476960) Problem Constipation, unspecified constipation type (K59.00) Active confirmed 02728953 Problem Pulmonary emphysema, unspecified emphysema type (J43.9) Active confirmed 47391189 Problem Hyperparathyroid ism (E21.3) Active confirmed 22087298 Problem Postmenopausal (Z78.0) Active confirmed 89144747 Problem FH: colon cancer (Z80.0) Active confirmed 618619232 Problem Serum calcium elevated (E83.52) Active confirmed 83952297 Problem Hearing loss, unspecified hearing loss type, unspecified laterality (H91.90) Active confirmed 27443134 Problem Hearing loss of right ear, unspecified hearing loss type (H91.91) Active confirmed 413761771 Problem 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 2.1 right and 1 cm on left Problem History of colonoscopy (Z98.890) 2022 Active confirmed 175906810083 ye[facility] gi; 5 yr fu Problem Cortisol deficiency (E27.49) Active confirmed 349417098 VITAL SIGNS Blood pressure diastolic 68 mm Hg 09/21/2024 Height 60.5 in 09/21/2024 Blood pressure systolic 126 mm Hg 09/21/2024 Weight 117 lbs 09/21/2024 BMI 22.47 kg/m2 09/21/2024 Encounters Encounter Location Date Provider Diagnosis [address] [address] 4 FAWN ROBLES Physical exam Z00.00 ; Encounter for screening mammogram for malignant neoplasm of breast Z12.31 ; Postmenopausal Z78.0 ; Hyperparathyroidism E21.3 ; FH: colon cancer Z80.0 ; Osteopenia M85.80 ; Nontoxic single thyroid nodule E04.1 ; Tobacco use Z72.0 ; Vitamin D deficiency E55.9 ; Adrenal incidentaloma E27.8 ; Constipation, unspecified constipation type K59.00 ; Pulmonary emphysema, unspecified emphysema type J43.9 and Trigger middle finger of right hand M65.331 [facility] [employer] [address] [address] 4 FAWN KRAKOWIAKCOLASACCO [facility] [address] [place] [address] 4 FAWN KRAK[place]COLASACCO [facility] [address] [place] [address] 5 FAWN KRAKOWIAKCOLASACCO [facility] [address], [place] [phone] 5 FAWN KRAK[place]KCOLASACCO [facility] [address] [place] [address] [address] [facility] [address] [place] [address] 5 FAWN NEFTALYKOWIAKCOLASACCO Centrilobular emphysema J43.2 and Tobacco use Z72.[address] [address] [address] [facility] [address] [place] [address] [address] [facility] [address] [place] [address] 5 FAWN KRAK[facility]IAKCOLASACCO [facility] [address], [place] [phone] 5 FAWN NEFTALYKOWIAKCOLASACCO Adrenal incidentaloma E27.8 ; Hyperparathyroidism E21.3 ; Nontoxic single thyroid nodule E04.1 ; Pulmonary emphysema, unspecified emphysema type J43.9 ; Pulmonary nodule R91.1 ; Vitamin D deficiency E55.9 ; Hearing loss of right ear, unspecified hearing loss type H91.91 and Tobacco user Z72.0 [facility] [address] [place] [address] 5 FAWN KRAK[place]COL[place]CO [address] [address] 5 FAWN NEFTALYKOWIAKCOLASACCO Tobacco user Z72.0 [facility] [address] [place] [address] 5 FAWN ROBLES Nicotine dependence, unspecified, uncomplicated F17.200 ; Nontoxic single thyroid nodule E04.1 ; Primary hyperparathyroidism E21.0 ; Adrenal incidentaloma E27.8 ; Emphysema, unspecified J43.9 ; Hearing loss, unspecified hearing loss type, unspecified laterality H91.90 and Pericardial effusion I31.[address] [address] 5 FAWN LIC[address]ASABDI [address] [address] 5 FAWN LICOLASACCO [address] [address] 5 FAWN LICOLASABDI [address] [address] 5 FAWN ROBLES ASSESSMENTS Encounter Date Diagnosis Assessment Notes Treatment Notes Treatment Clinical Notes Section Notes 09/21/2024 Nicotine dependence, unspecified, uncomplicated (ICD-10 - F17.200) understands need for cesstion interested in wellbutrin to help with cesstion started at prev visit. tolerating well and finds helpful cont annual ldct 04/13/2024 Centrilobular emphysema (ICD-10 - J43.2) 08/03/2024 Adrenal incidentalom a (ICD-10 - E27.8) have ref to endo for evla and fu 01/04/2024 Physical exam (ICD-1 0 - Z00.00) have ordered fasting labs to be done at convenience 04/13/2024 Tobacco use (ICD-10 - Z72.0) 08/03/2024 Hyperparathyroidism (ICD-10 - E21.3) will fu w/ endo as above 01/04/2024 Encounter for screening mammogram for malignant neoplasm of breast (ICD-10 - Z12.31) order slip for mammo provided 08/07/2024 Tobacco user (ICD-10 - Z72.0) 01/04/2024 Postmenopausal (ICD- 10 - Z78.0) order slip for dexa provided 08/03/2024 Nontoxic single thyroid nodule (ICD-10 - E04.1) have ordered us adn fu w/ endo 09/21/2024 Nontoxic single thyroid nodule (ICD-10 - E04.1) us was done : 3.6 cm TI-RADS category 4 nodule replacing most of the left lobe of the thyroid, stable to slightly decreased in size. Nodule again meets criteria for FNA, if not done already. has been ref to endocrine for eval/tx 01/04/2024 Hyperparathyroidism (ICD-10 - E21.3) Have ordered labs and referred to endocrine surgeon. Patient will schedule appointment and let me know if any issues. 08/03/2024 Pulmonary emphysema, unspecified emphysema type (ICD-10 - J43.9) have ref to pulm 09/21/2024 Primary hyperparathyroidism (ICD-10 - E21.0) ref to endo as above 01/04/2024 FH: colon cancer (ICD-10 - Z80.0) Has been referred to GI for colonoscopy and will follow-up with them as directed 09/21/2024 Adrenal incidentalom a (ICD-10 - E27.8) ref to endo as above 08/03/2024 Pulmonary nodule (ICD-10 - R91.1) will need ldct fu in 202501/04/2024 Osteopenia (ICD-10 - M85.80) Bone density scan ordered. 09/21/2024 Emphysema, unspecifi ed (ICD-10 - J43.9) waiting for appt w/ pulm 08/03/2024 Vitamin D deficiency (ICD-10 - E55.9) cont supplements and will montior 09/21/2024 Pericardial effusion (ICD-10 - I31.39) on echo 12/2022 rpt ordered for comparison 09/21/2024 Hearing loss, unspecified hearing loss type, unspecified laterality (ICD-10 - H91.90) is ref to ent and is waiting for appt 08/03/2024 Hearing loss of righ t ear, unspecified hearing loss type (ICD-10 - H91.91) ref to ent for eval 01/04/2024 Nontoxic single thyroid nodule (ICD-10 - E04.1) Will order labs to monitor TSH. 01/04/2024 Tobacco use (ICD-10 - Z72.0) and emphysema ldct due 05/2024 discussed chantix or bupropionShe is not sure she is ready for these but will consider 08/03/2024 Tobacco user (ICD-10 - Z72.0) understands need for cessation will start wellbutrin for help w/ smoking cessation. start 2 wks before planned quit date. med and SE 01/04/2024 Vitamin D deficiency (ICD-10 - E55.9) Will continue vitamin D supplements and will monitor vitamin D levels 01/04/2024 Adrenal incidentalom a (ICD-10 - E27.8) take dexamethasone 1 mg tablet at night between 11 pm and midnight. go for fasting labs between 7 am and 8 am next day to check serum cortisol and dexamethasone. Have ordered imaging of adrenal gland. 01/04/2024 Constipation, unspecified constipation type (ICD-10 - K59.00) Have discussed lifestyle changes. Have also discussed using a stool softener such as Dulcolax and or a mild laxative if needed.She will call if change worsening and or will follow-up with gastroenterology 01/04/2024 Pulmonary emphysema, unspecified emphysema type (ICD-10 - J43.9) will ref to pulmonary. Knows that she will be called to schedule. Understands need for smoking cessation 01/04/2024 Trigger middle finge r of right hand (ICD-10 - M65.331) declines further eval/tx at this time will let me know 01/04/2024 Other Patient is seen today for a routine physical. As part of this visit we reviewed the following issues, which are considered and essential part of preventative health in this age group: - Breast Cancer screening for high risk individuals -ordered- Blood pressure screening annually - performed - Cholesterol screening every five years - ordered - Osteoporosis prevention including calcium/vitamin D intake, weight bearing exercise & smoking cessation - Nutritional and exercise counseling - patient was advised to work on healthy changes - Counseling of injury prevention including fire prevention, smoke alarms and seat belt usage - Screening for depression denies - Screening for domestic abuse - Screening for Type 2 diabetes mellitus in those with HTN and/or HLD - Prevention of and/or testing for infectious diseases, which may include Chlamydia Gonorrhea, Syphilis, HIV, Hepatitis C, and Tuberculosis - Education about skin cancer - Recommendations about immunizations - rec flu shot, prevnar 20, rsv, covid booster - Recommendation of an eye exam for glaucoma once in this age range - patient will self refer - Screening for substance abuse (including tobacco, alcohol, and recreational drugs) - denies - Genetic cancer risk screening - - In addition to reviewing these issues, I have reviewed the following sections of the chart: family history, social history, surgical history, allergies, and past medical history. PLAN OF TREATMENT Pending Test Test Name Order Date Echocardiogram 09/21/2024 Future Test Test Name Order Date Mammogram Screening Bilatera l, Perform Breast US and/or US-guided aspiration and/or breast biopsy if warranted 02/25/2014 Bone density (Three site Dexa) 5 Echocardiogram 09/01/2021 Echocardiogram 12/30/2021 TSH WITH REFLEX TO FT4 (ADULTS ONLY) 25OH VITAMIN D 2022 DHEA SULFATE 2022 IONIZED CALCIUM 2022 PTH INTACT 2022 Next Appt Details Provider Name:FANW DONALD, 01/28/2025 11:00:00 AM, [address] [place], [address], Insurance Providers Payer Name Payer Address Payer Phone Subscriber Number Group Number Insured Name Patient Relationship to Insured Coverage Start Date Coverage End Date [employer] [address] [place] [id number] [employer] Self - patient is the insured 3 MEDICAL (GENERAL) HISTORY Medical History History ICD Code primary hyperparathyroidism- pt. decline d surgery monitoring calcium thyroid nodule pt did have a workup and was suppose to have it removed. Osteopenia Tobacco use disorder FH of Colon cancer-Colon 7/0 5nl//Colon4/18/16-rare sigm tics-Rec [id number] Surgical History Surgery Date(Month/Year) Abd Chest exploration p trauma-1979. Hospitalization History Reason Date(Month/Year) Infections Colitis 03/31
== END 2024-12-18 15:03 | disposition home or self-care (01) ==
LOC: HO.HPS 13:32
PROVIDERS: PCP Internal Medicine; Visit Provider Internal Medicine
DX: J44.9 Chronic obstructive pulmonary disease, unspecified (principal); F17.200 Nicotine dependence, unspecified, uncomplicated
CPT/HCPCS: 94010; 99204

== ENCOUNTER → 2024-12-18 13:31 | Outpatient (BNVA) | payer OTHER, SELFPAY | PROVIDERS: PCP Internal Medicine; Visit Provider Internal Medicine | DX: J44.9 Chronic obstructive pulmonary disease, unspecified (principal) | CPT/HCPCS: 94010 ==